=== PATIENT | male | born 1995 ===

== ENCOUNTER → 2020-02-29 | Outpatient (CLI) | payer OTHER ==
[2020-03-02 17:04] LABS: CORONAVIRUS (COVID19) CSH-NRL Negative (Negative)
== END | disposition home or self-care (01) ==
LOC: LAB SHORT 15:02 → LAB 15:02
PROVIDERS: Chiropractor
DX: Z20.828 Contact with and (suspected) exposure to other viral communicable diseases (principal)
CPT/HCPCS: U0003